=== PATIENT | female | born 1990 ===

== ENCOUNTER 2018-07-10 10:56 | Emergency (ER) | payer OTHER ==
[2018-07-10 11:01] VITALS: BP 160/62
--- NOTE | 2018-07-10 11:54 | Emergency Department Report ---
HPI - General Chief Complaint: Abdominal Pain Time Seen by Provider: 07/10/18 11:30 - HPI HPI: 37-year-old female presents to the emergency department with a complaint of some epigastric and right upper quadrant abdominal pain that she believes is a "gall bladder attack." The patient was at [facility] in January of last year and was found to have gallstones and told to follow-up with a general surgeon, which she never did. She's been having some upper abdominal pain and back pain for the past 2 weeks that feels like an aching sensation. However last night the pain became very intense and she had one episode of nausea and vomiting. She tried some Tylenol for symptoms without any relief. Otherwise she denies any other past medical history. No recent travel or sick contacts at home. ED Past Medical Hx - Surgical History Hx Appendectomy: Yes - Social History Smoking Status: Never Smoker ED Review of Systems ROS: Stated complaint: GALLBLADDER PAIN Other details as noted in HPI Constitutional: denies: chills, fever Eyes: denies: eye pain, vision change ENT: denies: ear pain, throat pain Respiratory: denies: cough, shortness of breath Cardiovascular: denies: chest pain, palpitations Gastrointestinal: abdominal pain, nausea, vomiting Genitourinary: denies: dysuria, discharge Musculoskeletal: denies: back pain, arthralgia Skin: denies: rash, lesions Neurological: denies: headache, weakness Physical Exam - Physical Exam Vital Signs: Vital Signs 07/10/18 11:00 Temperature 97.1 F L Pulse Rate 76 Respiratory 18 Rate Blood Pressure 160/62 O2 Sat by Pulse 100 Oximetry Physical Exam: GENERAL: The patient is well-developed well-nourished. HENT: Normocephalic. Atraumatic. Patient has moist mucous membranes. EYES: Extraocular motions are intact. Pupils equal reactive to light bilaterally. NECK: Supple. Trachea is midline. CHEST/LUNGS: Clear to auscultation. There is no respiratory distress noted. HEART/CARDIOVASCULAR: Regular. There is no tachycardia. There is no murmur. ABDOMEN: Abdomen is soft. There is some right upper quadrant tenderness to palpation. No guarding. Patient has normal bowel sounds. There is no abdominal distention. SKIN: Skin is warm and dry. NEURO: The patient is awake, alert, and oriented. The patient is cooperative. The patient has normal speech. MUSCULOSKELETAL: There is no tenderness or deformity. There is no evidence of acute injury. ED Course Vital Signs 07/10/18 11:00 Temperature 97.1 F L Pulse Rate 76 Respiratory 18 Rate Blood Pressure 160/62 O2 Sat by Pulse 100 Oximetry ED Medical Decision Making - Lab Data Result diagrams: 07/10/18 11:54 07/10/18 11:50 - Radiology Data Radiology results: report reviewed PROCEDURE: US ABDOMEN LIMITED TECHNIQUE: Ultrasound imaging of the right upper quadrant was performed. HISTORY: RUQ pain COMPARISONS: None. FINDINGS: Liver: The liver is normal in echogenicity. No masses. No intrahepatic biliary ductal dilation. Gallbladder/biliary system: Cholelithiasis is seen. No gallbladder wall thick ening or pericholecystic fluid. No positive sonographic Napier's sign was noted by the second time worker. The common bile duct measures 5 millimeters. Abdominal aorta/IVC: The visualized portions of the abdominal aorta and IVC are normal in caliber. Right kidney: The right kidney is normal in echogenicity without hydronephrosis, cyst, mass or calcification. Right kidney length: 10.3 centimeters. Pancreas: The visualized portions of the pancreas demonstrate no focal lesion. Free fluid: None. IMPRESSION: Cholelithiasis without ultrasound evidence of acute cholecystitis. This document is electronically signed by Roland Lopez., Jul 10 2018 02:20:00 PM ET Transcribed By: Dictated By: ROLAND ROCK MD Electronically Authenticated By: ROLAND ROCK MD Signed Date/Time: 07/10/18 1421 - Medical Decision Making Patient has a history of gallstones and comes in complaining of some right upper quadrant pain with an episode of nausea and vomiting. Labs are unremarkable. Ultrasound does show cholelithiasis without cholecystitis. Vital signs stable. Patient discharged home to follow up with general surgery. She will return to the ER with any worsening of her symptoms with any acute distress. - Differential Diagnosis cholelithiasis, cholecystitis, pyelonephritis Critical Care Time: No Critical care attestation.: If time is entered above; I have spent that time in minutes in the direct care of this critically ill patient, excluding procedure time. ED Disposition Clinical Impression: Elevated blood pressure reading, Cholelithiasis Disposition: DC- TO HOME OR SELFCARE Is pt being admited?: No Condition: Stable Instructions: Biliary Colic (ED), Abdominal Pain (ED) Additional Instructions: Please follow up with a primary care physician. I am giving you a referral for a local general surgeon, Dr. Carrion, to follow up regarding her gallstones. Try and stay away from foods that are high in fat or greasy. Return to the emergency Department with any worsening of your symptoms, development of fever, or with any acute distress. Referrals: MELIDA SHAFFER [Other] - 2-3 Days FLORA CARRION MD [Staff Physician] - 2-3 Days Forms: Work/School Release Form(ED) Time of Disposition: 14:29
[2018-07-10 12:10] LABS: Bacteria,Urine 1+ /HPF (Negative); Bilirubin,Urine NEG (Negative); Blood,Urine NEG (Negative); Color,Urine Yellow (Yellow); Mucus,Urine 3+ /HPF; Protein,Urine <15 mg/dL mg/dL (Negative); Urobilinogen,Urine < 2.0 mg/dL (<2.0)
[2018-07-10 12:13] LABS: Basophils # (Auto) 0.1 K/mm3 (0.0-0.1); Basophils % (Auto) 0.8 % (0.0-1.8); Eosinophils % (Auto) 0.3 % (0.0-4.3); Hematocrit 39.1 % (30.3-42.9); Hemoglobin 12.7 gm/dl (10.1-14.3); Lymphocytes # (Auto) 2.2 K/mm3 (1.2-5.4); Lymphocytes % (Auto) 31.1 % (13.4-35.0); Mean Corpuscular HGB Conc 33 % (30-34); Mean Corpuscular Volume 85 fl (79-97); Monocytes # (Auto) 0.4 K/mm3 (0.0-0.8); Monocytes % (Auto) 5.8 % (0.0-7.3); Platelet Count 359 K/mm3 (140-440); Red Cell Distribution Width 15.7 % (13.2-15.2)
[2018-07-10 12:38] LABS: BUN/Creatinine Ratio 16; Blood Urea Nitrogen 11 mg/dL (7-17); Calcium 9.3 mg/dL (8.4-10.2); Hemolysis Index 13
[2018-07-10 12:42] LABS: Alanine Aminotransferase 12 units/L (7-56); Albumin 4.4 g/dL (3.9-5)
[2018-07-10 12:45] LABS: Bilirubin,Direct < 0.2 mg/dL (0-0.2)
--- NOTE | 2018-07-10 14:22 | Ultrasound Report ---
PROCEDURE: US ABDOMEN LIMITED TECHNIQUE: Ultrasound imaging of the right upper quadrant was performed. HISTORY: RUQ pain COMPARISONS: None. FINDINGS: Liver: The liver is normal in echogenicity. No masses. No intrahepatic biliary ductal dilation. Gallbladder/biliary system: Cholelithiasis is seen. No gallbladder wall thickening or pericholecystic fluid. No positive sonographic Napier's sign was noted by the disability representative. The common bile duct measures 5 millimeters. Abdominal aorta/IVC: The visualized portions of the abdominal aorta and IVC are normal in caliber. Right kidney: The right kidney is normal in echogenicity without hydronephrosis, cyst, mass or calcif ication. Right kidney length: 10.3 centimeters. Pancreas: The visualized portions of the pancreas demonstrate no focal lesion. Free fluid: None. IMPRESSION: Cholelithiasis without ultrasound evidence of acute cholecystitis. This document is electronically signed by Suzy Lopez., Jul 10 2018 02:20:00 PM ET
== END 2018-07-10 14:45 | disposition home or self-care (01) ==
LOC: EDBD → ED 10:56
DX: K80.20 Calculus of gallbladder without cholecystitis without obstruction (principal); R03.0 Elevated blood-pressure reading, without diagnosis of hypertension; Z90.49 Acquired absence of other specified parts of digestive tract
CPT/HCPCS: 36415; 76705; 80048; 80076; 81001; 83690; 84703; 85025